=== PATIENT | female | born 1995 | race Two or more races ===

== ENCOUNTER 2018-04-24 09:46 | Day surgery (SDC) | payer OTHER ==
[~2018-04-24 09:46] MED LIST: LIDOCAINE 1% PF 2 ML VIAL. ID; MORPHINE SULFATE 2 MG/ML DISP.SYRIN. IV; ONDANSETRON PF 4 MG/2 ML VIAL. IV; PROCHLORPERAZINE 10 MG/2 ML VIAL. IV; fentaNYL PF VIAL 100 MCG/2 ML VIAL IV
[2018-04-24] MEDS ORDERED: DEXAMETHASONE SOD PHOS 4 MG/ML VIAL (10:00)
[2018-04-24] MEDS ORDERED: POVIDONE-IODINE 10% TOPICAL OINTMENT 28GM TUBE. TP (10:00)
[2018-04-24] MEDS: IV RINGERS,LACTATED 1000ML 1,000 ML IV (10:24)
[2018-04-24 10:33] LABS: ADD MAN DIFF? NO
[2018-04-24 10:40] LABS: NEG OBC UR NEG; POS OBC UR POS; U PREG PATIENT NEGATIVE (NEG)
[2018-04-24 10:42] LABS: BASO # 0.1 x10^3/uL (0.0-0.2); BASO % 1 % (0-3); EOS # 0.1 x10^3/uL (0.0-0.7); EOS % 1 % (0-3); HEMATOCRIT 40.1 % (36.0-47.0); HEMOGLOBIN 13.6 g/dL (12.0-15.5); LYMPH # 2.7 x10^3/uL (1.0-4.8); LYMPH % 31 % (24-48); MEAN CORPUSCULAR HEMOGLOBIN 29 pg (25-35); MEAN CORPUSCULAR HGB CONC 34 g/dL (31-37); MEAN CORPUSCULAR VOLUME 86 fL (79-100); MONO # 0.5 x10^3/uL (0.0-1.1); MONO % 5 % (0-9); NEUT # 5.5 x10^3uL (1.8-7.7); NEUT % 62 % (31-73); PLATELET COUNT 331 x10^3/uL (140-400); RED BLOOD COUNT 4.69 x10^6/uL (3.50-5.40); RED CELL DISTRIBUTION WIDTH 14.2 % (11.5-14.5); WHITE BLOOD COUNT 8.9 x10^3/uL (4.0-11.0)
[2018-04-24] MEDS ORDERED: LIDOCAINE 2%/EPI 1:100,000 20 ML VIAL. (11:09)
[2018-04-24] MEDS ORDERED: NEOMY/BACITR/POLYMYXIN OINT PACKET. TP (11:28)
[2018-04-24] MEDS ORDERED: fentaNYL PF VIAL 100 MCG/2 ML VIAL (12:20)
[2018-04-24] MEDS ORDERED: PROPOFOL 20 ML IV (12:21)
[2018-04-24] MEDS: LIDOCAINE 1% PF 30 ML VIAL. (12:26)
[2018-04-24] MEDS: LIDOCAINE 1%/EPI 1:100,000 30 ML VIAL. IJ (12:26)
[2018-04-24] MEDS: BUPIVACAINE 0.5% 50 ML VIAL. (12:26)
[2018-04-24] MEDS ORDERED: MIDAZOLAM HCL/PF 2 MG/2 ML VIAL. (12:28)
[2018-04-24] MEDS: BACITRACIN TOPICAL OINT 14GM TUBE. TP (12:39)
[2018-04-24] MEDS: HYDROcodone/APAP 5/325MG 1 TAB TABLET PO (13:40)
== END 2018-04-24 14:16 | disposition home or self-care (01) ==
LOC: SURG 09:46
DX: B07.0 Plantar wart (principal); E66.9 Obesity, unspecified; Z68.30 Body mass index [BMI] 30.0-30.9, adult; Z98.890 Other specified postprocedural states
CPT/HCPCS: 36415; 81025; 85025; 88305; A7015; J1100; J2250; J2704; J3010; J3490